=== PATIENT | female | born 1940 | race Caucasian/White ===

== ENCOUNTER 2017-01-14 14:48 | Inpatient (IN) | payer MEDICARE ==
[~2017-01-14] VITALS: Ht 160 cm; Wt 52.6 kg
--- NOTE | 2017-01-14 17:05 | NUR ---
PT WAS ADMITTED FROM [facility] FOR INCREASED AGGRESSION AND DELUSIONS ABOUT BOMBS AND FIRES. PT HAS NOT BEEN TAKING HER MEDICATIONS AND HAS BEEN NON-COMPLIANT WITH CARE. UPON ADMIT THE PT WOULD NOT OPEN HER EYES OR SPEAK WITH STAFF. RESPIRATORY WENT IN TO DO AN EKG BUT THE PT REFUSED. PT IS ORIENTED TO PERSON ONLY. ATTEMPTED TO CALL EMERGENCY CONTACT BUT NO ANSWER. PT DOES GIVE CONSENT FOR TREATMENT AT THIS TIME BUT SHE IS REFUSING ASSESSMENT. PT HAS AN ARM SLING ON HER LEFT ARM AND SHE DOES NOT BARE WEIGHT ON HER LEFT LEG. SHE TENDS TO DRAG HER LEFT LEG WHEN SHE WALKS. FAISAL FROM FACILITY STATED THAT THE PT HAD FALLEN BUT WAS TAKEN TO [facility] AND AN EXTRA WAS DONE AND CLEAR. FALL PRECAUTIONS INITIATED DUE TO PT BEING IMPULSIVE WITH A HX OF FALLS. WILL CONTINUE TO MONITOR.
[2017-01-14] MEDS ORDERED: ANASTROZOLE1 MG PO (17:16)
[2017-01-14] MEDS ORDERED: ASPIRIN325 MG PO (17:16)
[2017-01-14] MEDS ORDERED: LIPITOR80 MG PO (17:17)
[2017-01-14] MEDS ORDERED: COLACE100 MG PO (17:17)
[2017-01-14] MEDS ORDERED: KEPPRA250 MG PO (17:18)
[2017-01-14] MEDS ORDERED: NICODERM C1 PATCH .3 TRANSDERM (17:19)
[2017-01-14] MEDS ORDERED: MULTIPLE VITAMI1 TA1 PO (17:19)
[2017-01-14] MEDS ORDERED: PRADAXA150 MG PO (17:20)
[2017-01-14] MEDS ORDERED: HYDROCODON-ACE1 EAC7 PO (17:20)
[2017-01-14] MEDS ORDERED: PROPAFENONE HC225 MG PO (17:21)
[2017-01-14] MEDS ORDERED: REQUIP0.25 MG PO (17:22)
[2017-01-14] MEDS ORDERED: TRAZODONE HCL50 MG PO (17:22)
--- NOTE | 2017-01-14 17:41 | NUR ---
SPOKE WITH [facility] WHICH IS THE EMERGENCY CONTACT FOR THIS PATIENT. PERMISSION WAS GIVEN FOR TREATMENT. REVIEWED VISTITATION TIMES AND CODE WORD. VERBALIZED UNDERSTANDING.
[2017-01-14 18:03] VITALS: BP 122/60
--- NOTE | 2017-01-14 20:22 | NUR ---
RECEIVED IN BEDROOM. VERY CONFUSED. DELUSIONAL. STATES SHE NEEDS TO SAVE THE BABY. NOTED ANXIETY RELATED TO DELUSIONS. YELLING OUT CONSTANTLY. NO SIGNS OF AGGRESSION. PRN ATIVAN 0.5 MG IM AND HALDOL 2 MG IM GIVEN FOR SEVERE ANXIETY, CONTINUE TO REDIRECT AND ERORIENT. LAYING IN BED YELLING OUT FOR UNKNOWN PERSONS. CONTINUE PLAN OF CARE
[2017-01-14 23:31] VITALS: BP 131/74
[2017-01-15 09:05] LABS: BASOPHILS 0.4 % (0-2); EOSINOPHILS 1.8 % (0-7); HEMATOCRIT 29.9 % (36.0-48.0); HEMOGLOBIN 9.5 g/dL (12-16); IMMATURE GRANULOCYTES 0.1 % (0-5); LYMPHOCYTES 8.6 % (15-50); MCH 30.7 pg (26.0-34.0); MCHC 31.8 g/dL (31.0-37.0); MCV 96.8 fL (80.0-100.0); MONOCYTES 9.6 % (2-11); NEUTROPHILS 79.5 % (40-80); PLATELET COUNT 354 10x3/uL (130-400); RBC 3.09 10x6/uL (4.00-5.40); RDW 14.9 % (11.5-14.5); WBC 7.2 10x3/uL (4.8-10.8)
[2017-01-15 09:31] LABS: ALKALINE PHOSPHATASE 86 U/L (46-116); ALT (SGPT) 25 U/L (10-68); BILIRUBIN - TOTAL 0.49 mg/dL (0.2-1.3); CALC OSMOLALITY 278 mosm/kg (275-300); CALCIUM 8.9 mg/dL (8.5-10.1); CARBON DIOXIDE 29.5 mmol/L (21.0-32.0); CHLORIDE - SERUM 102 mmol/L (98-107); CHOL - HDL RATIO 2.3 ratio (2.3-4.1); CHOLESTEROL, TOTAL 86 mg/dL (0-200); CREATININE - SERUM 0.7 mg/dL (0.6-1.3); GLUCOSE 127 mg/dL (74-106); HDL CHOLESTEROL 38 mg/dL (32-96); LDL CHOLESTEROL 39 mg/dL (0-100); POTASSIUM - SERUM 3.4 mmol/L (3.5-5.1); PROTEIN - SERUM 6.6 g/dL (6.4-8.2); SODIUM 139 mmol/L (136-145); TRIGLYCERIDE 48 mg/dL (30-200); UREA NITROGEN 10 mg/dL (7-18); eGFR NON AFRICAN AMERICAN 87 mL/min (90-120)
[2017-01-15 09:49] LABS: HEMOGLOBIN A1C 4.5 % (4.8-6.0)
[2017-01-15 10:14] VITALS: BP 135/74
[2017-01-15 11:16] VITALS: BP 135/74
--- NOTE | 2017-01-15 12:37 | NUR ---
Patient is in dayroom, in wheelchair, will get in corner of the room and keeps bumping into wall. She is keeping her right eye closed but can open it on command. When asked about her eye she says she has had three strokes "starting at 10 years old". Patient is oriented to person only. She does know she's in the hospital, just unsure where. She says the reason she is here is because she has had strokes. Patient is non-aggressive, compliant with medication and non-delusional at this time. Continue to monitor, continue plan of care.
--- NOTE | 2017-01-15 14:31 | NUR ---
Patient in dayroom, yelling out "Elen". Patient was reoriented but still continues to yell out. Even though she is told that she is in the hospital and Elen is not here, she says "I don't care, I miss her". Continue to monitor, continue plan of care
[2017-01-15 18:57] LABS: APPEARANCE HAZY (CLEAR); BILIRUBIN NEGATIVE (NEGATIVE); COLOR DK YELLOW (YELLOW); GLUCOSE NEGATIVE (NEGATIVE); KETONE NEGATIVE (NEGATIVE); LEUKOCYTE ESTERASE NEGATIVE (NEGATIVE); NITRITE NEGATIVE (NEGATIVE); PROTEIN NEGATIVE (NEGATIVE); SPECIFIC GRAVITY 1.025 (1.005-1.020); UROBILINOGEN NORMAL (NORMAL)
[2017-01-15 19:29] VITALS: BP 120/59
--- NOTE | 2017-01-15 21:33 | NUR ---
RECEIVED IN BEDROOM. LAYING IN BED WITH EYES CLOSED. RESPONDS TO VOICE. CALM AND COOPERATIVE WITH CARE AND ASSESSMENTS. NO SIGNS OF AGGRESSION. NO DELUSIONAL STATEMENTS MADE. REDIRECT AND REORIENT NEEDED. RESTING EYES CLOSED AT THIS. CONTINUE PLAN OF CARE
[2017-01-16 06:16] LABS: RAPID PLASMA REAGIN Non Reactive (Non Reactive)
[2017-01-16 08:22] LABS: FOLATE (FOLIC ACID) - SERUM >20.0 ng/mL (>3.0)
[2017-01-16 08:30] VITALS: BP 94/59
--- NOTE | 2017-01-16 10:00 | NUR ---
B) Pt rec'd this a.m. in dining room for b'fast, alert, pleasant mood, no agitation or aggression noted. I) Meds admin per orders, group activity provided. R) Med compliant with no s/s adverse reaction noted, participated in a.m. group activity.P P) Cont current plan of care including meds and group activity.
[2017-01-16 10:21] LABS: VITAMIN D 25 HYDROXY 44.7 ng/mL (30.0-100.0)
--- NOTE | 2017-01-16 13:13 | NUR ---
Pt very agitated, angry, combative, stated, "I'm going home!" Attempting arise from w/c, very unsteady and unable to ambulate safely, pt attempting to hit staff, unable to re-direct. Ativan 0.5 mg admin PO for anxiety.
--- NOTE | 2017-01-16 14:00 | NUR ---
Pt sitting in w/c in day room, propelling self in w/c about day room, alert, quiet, no further anxiety noted at this time.
--- NOTE | 2017-01-16 17:47 | HP ---
PATIENT: JERI WANG MEDICAL RECORD: [id number] ACCOUNT: [id number] LOCATION:SHANNON Causey9 : 42 ADMISSION DATE: 01/14/17 HISTORY AND PHYSICAL EXAMINATION IDENTIFYING DATA: The patient is 76 years old and she is admitted to the hospital on a voluntary basis. CHIEF COMPLAINT: Psychosis. HISTORY OF PRESENT ILLNESS: The patient lives in a shelter in [place]. She apparently has an existing and known long-term diagnosis of schizophrenia. For some reason, she says she has been taking her antipsychotic medications, but she has developed a very bizarre psychotic syndrome. She believes that there are babies who have bombs strapped to them and she has got to get to them to intervene. It is complex, convoluted, and frankly does not really follow a logical pattern even though it is delusional. She is very distressed by it and it is hard to follow what she is wanting us to do. She has been yelling about this, demanding that she be allowed to save these children and we are preventing her from saving the babies. PAST MEDICAL HISTORY: Significant for hyperlipidemia. PAST PSYCHIATRIC HISTORY: Significant for schizophrenia. The details of her past hospitalizations are actually unknown. She is trying to tell me a little bit about it, but then is too upset about the children that have the bombs. FAMILY HISTORY: Unknown. ALLERGIES: PENICILLIN, IODINE AND SULFA. CURRENT MEDICATIONS: Include Arimidex, aspirin, Lipitor, Colace, Keppra, Pradaxa, Requip and Restoril. SOCIAL HISTORY: The patient is single. She has never been and has no children. She says she is from [facility], that she came here to visit someone and now lives in a shelter. She denies drug or alcohol abuse. MENTAL STATUS EXAMINATION: The patient is awake, alert and oriented to person and place. Her mood is flat. Her affect is constricted. Thought processes are circumstantial. Memory, concentration and abstraction abilities are moderately impaired and she denies that she would seek to harm herself or others, as well as psychotic symptoms. Obviously, she is having psychotic symptoms, but she denies them, and she also says that she would do whatever is necessary including hurt an adult to save the babies. ASSETS: Supportive and stable living environment. LIABILITIES: Limited insight. DIAGNOSTIC IMPRESSION: AXIS I: Schizophrenia, chronic, undifferentiated. AXIS II: None. AXIS III: Hyperlipidemia, cardiac arrhythmias, seizure disorder, breast cancer. AXIS IV: Moderate stressors. HISTORY AND PHYSICAL [id number] JERI WANG AXIS V: Global assessment of functioning is 35. PLAN: At this time, the patient is admitted to the hospital secondary to psychotic symptoms associated with chronic mental illness. She will be treated with both mood-stabilizing and antipsychotic medications. Her long-term prognosis is guarded. TRANSINT:[id number] Voice Confirmation ID: [id number] DOCUMENT ID: [id number] YUNIER SEXTON MD at 1747 CC: [id number] DICTATION DATE: 01/15/17 1501 UNDERGROUND MINE SUPERINTENDENT: 01/15/175 ADM IN [place] [id number] [place] [address]
[2017-01-16 20:16] VITALS: BP 135/68
--- NOTE | 2017-01-17 00:54 | NUR ---
B) Recieved sitting i her wheelchair in the day room, alert and oriented to self only, restless at times, social with peers, I) Administered perscribed medications, redirected as needed, monitored for falls and safety, R) Medication compliant, tearful at times, P) Continue plan of care, continue to monitor.
[2017-01-17 11:00] VITALS: BP 136/55
--- NOTE | 2017-01-17 13:04 | PN ---
PATIENT:JERI WANG MEDICAL RECORD: [id number] LOCATION:NAIDAJaya MarciConnerDeanne ADMISSION DATE: 01/14/17 PROGRESS NOTE DATE OF SERVICE: 01/16/2017 SUBJECTIVE: The patient's case was discussed with staff. She has no new complaint. OBJECTIVE: The patient denies intent to harm herself or others. She generally tolerates her medicines well. Eye contact is fair. ASSESSMENT: No change in diagnoses. PLAN: Current medicines and therapies have been reviewed and will be maintained. Long-term prognosis is guarded. I am going to increase the dose of the Zyprexa slightly. TRANSINT:[id number] Voice Confirmation ID: [id number] DOCUMENT ID: [id number] YUNIER SEXTON MD at 1304 CC: [id number] DICTATION DATE: 01/16/17 184 MILLER FIRST: 01/17/17 0302 ADM IN [facility] [address] [place] [address]
--- NOTE | 2017-01-17 15:25 | NUR ---
LATE ENTRY: PATIENT IS AWAKE AND ALERT, SHE IS CONVERSING WITH STAFF, BUT SHE IS CONFUSED AND OFTEN NONSENSICAL AND UNABLE TO FOLLOW A COMPLETE CONVERSATION. PATIENT IS CALM, SHE IS IN A W/C AND CAN SELF PROPEL WITH ONE ARM, BUT NEEDS ASSIST WITH TRANSFERS AND PROPELLING ANY DISTANCE. CONTINUE PLAN OF CARE.
--- NOTE | 2017-01-17 20:30 | NUR ---
RECEIVED IN DAYROOM SITTING IN W/C. CALM AND COOPERATIVE WITH CARE AND ASSESSMENT. REDIRECT AND REORIENT NEEDED. COMPLIANT WITH MEDICATIONS. CONTINUE PLAN OF CARE.
[2017-01-17 21:12] VITALS: BP 133/65
[2017-01-18 09:35] VITALS: BP 102/42
--- NOTE | 2017-01-18 12:38 | PN ---
PATIENT:JERI WANG MEDICAL RECORD: [id number] LOCATION:SHANNON Cunningham112 ADMISSION DATE: 01/14/17 PROGRESS NOTE DATE OF SERVICE: 01/17/2017 Psychiatric Progress Note SUBJECTIVE: The patient's case was discussed with staff. She has no new complaint. OBJECTIVE: The patient is in good behavioral control with limited insight about her condition. She tolerates her medicines well. She does appear a little bit sedated. I am strongly suspecting that this is related to noncompliance with her medications prior to admission. She will be monitored for clinical changes and for today, I am going to just leave her on the current medications. TRANSINT:[id number] Voice Confirmation ID: [id number] DOCUMENT ID: [id number] YUNIER SEXTON MD at 1238 CC: [id number] DICTATION DATE: 01/17/17 1320 BOBBIN PAINTER: 01/18/17 0129 ADM IN [facility] [address] [place] [id number]
--- NOTE | 2017-01-18 15:26 | NUR ---
B) PATIENT IS CONFUSED, SHE CAN MAKE A CONVERSATION, BUT IT IS NONSENSICAL AFTER A FEW MINUTES, SHE DOES PARTICIPATE IN GROUPS SHE HAS NOT SHOWN ANY AGGRESSION. SHE HAS LISTENED TO REDIRECTION WHEN NEEDED. JOSE ALFREDO SIN DID COME BY AT [facility] TO ASSESS HER FOR POSSIBLE ADMISSION. PATIENT USES A W/C TO GET AROUND, SHE HAS A SLING ON HER LEFT ARM. BILATERAL LOWER LEGS HAVE SKIN TEARS WITH BANDAIDS. I) PROVIDE PRESCRIBED MEDS. R) PATIENT IS CALM AND COMPLIANT WITH MEDS. P) CONTINUE PLAN OF CARE.
[2017-01-18 19:30] VITALS: BP 128/79
--- NOTE | 2017-01-18 20:00 | NUR ---
RECEIVED IN DINING ROOM SITTING IN W/C, ISOLATED FROM HER PEERS. CONFUSED, AND CALM. COOPERATIVE WITH ASSESSMENT AND CARE. VSS. REDIRECT AND REORIENT NEEDED. REINFORCE FALL SAFETY. CONTINUE WITH PLAN OF CARE.
[2017-01-19 09:02] VITALS: BP 114/67
--- NOTE | 2017-01-19 15:10 | NUR ---
B) PATIENT IS CALM AND POLITE, SHE IS ORIENTED TO SELF. PATIENT IS COOPERATIVE. SHE HAS HAD HER LEGS ELEVATED SHE HAS EDEMA IN HER LEGS. SHE HAS GONE TO TAKE A SHOWER. I) PROVIDE PRESCRIBED MEDS. R) PATIENT IS COMPLIANT WITH MEDS. P) CONTINUE PLAN OF CARE.
[2017-01-19 19:30] VITALS: BP 121/86
--- NOTE | 2017-01-20 03:07 | NUR ---
B) Recieved patient in the day room alert and oriented to self, calm and cooperative this shift, I) Administered perscribed medications, monitored for falls and safety, redirected as needed, R) Medication compliant, restless at times, P) Continue plan of care.
[2017-01-20 08:57] VITALS: BP 134/57
--- NOTE | 2017-01-20 18:03 | NUR ---
Patient in dayroom, oriented to self, place, time. She says she is here because she had a stroke. She is fidgety and restless. Patient does socialize with peers but started talking to herself later in the day. Patient reoriented. Continue to monitor, continue plan of care.
[2017-01-20 19:30] VITALS: BP 123/68
--- NOTE | 2017-01-20 22:25 | NUR ---
B) Recieved patient ambulating in the day room in her wheelchair, alert and oriented to self, calm and cooperative with care and assessments, I) Administered perscribed medications crushed in ice cream, R) medication compliant, resting in bed now, P) Continue plan of care.
[2017-01-21 07:00] VITALS: BP 90/59
--- NOTE | 2017-01-21 09:54 | PN ---
PATIENT:JERI WANG MEDICAL RECORD: [id number] LOCATION:SHANNON Causey ADMISSION DATE: 01/14/17 PROGRESS NOTE DATE OF SERVICE: 01/18/2017 SUBJECTIVE: The patient's case was discussed with staff. She has no new complaint. OBJECTIVE: The patient is still delusional, but not aggressive. She is not eating very well, but she says she is not very hungry and that she will try harder. ASSESSMENT: No change in diagnoses. PLAN: Current medicines have been reviewed and will be maintained. Long-term prognosis is guarded. TRANSINT:[id number] Voice Confirmation ID: [id number] DOCUMENT ID: [id number] YUNIER SEXTON MD at 0954 CC: [id number] DICTATION DATE: 01/18/17 1255 BILINGUAL KINDERGARTEN TEACHER: 01/19/17 0055 ADM IN [facility] [address] [place] [address]
--- NOTE | 2017-01-21 14:43 | NUR ---
Patient in dayroom oriented to self and place, she knows she in a hospital. Patient reoriented. Lips were chapped and mouth extremely dry. Glycerin swabs used along with lip moisturizer. Bandage put on skin tears on left leg. Patient is restless. She admitted to being in pain. Patient given prn [place]. Continue to monitor.
[2017-01-21 19:42] VITALS: BP 115/46
--- NOTE | 2017-01-21 19:57 | NUR ---
RECEIVED IN HALLWAY. SITTING IN WHEELCHAIR OUTSIDE OF NURSES STATION. CALM AND COOPERATIVE WITH CARE AND ASSESSMENTS. NO SIGNS OF AGGRESSION. NO DELUSIONAL STATEMENTS MADE AT THIS TIME. CONTINUES TO REST IN WHEELCHAIR. CONTINUE PLAN OF CARE
[2017-01-22 07:00] VITALS: BP 109/42
--- NOTE | 2017-01-22 14:21 | PN ---
PATIENT:JERI WANG MEDICAL RECORD: [id number] LOCATION:SHANNON CunninghamDeanne ADMISSION DATE: 01/14/17 PROGRESS NOTE DATE OF SERVICE: 01/21/2017 SUBJECTIVE: The patient's case was discussed with staff. She has no new complaint. OBJECTIVE: The patient is in good behavioral control with limited insight about her condition. She does tolerate her medicines reasonably well. ASSESSMENT: No change in diagnoses. PLAN: Current medicines have been reviewed and will be maintained. Long-term prognosis is guarded. TRANSINT:[id number] Voice Confirmation ID: [id number] DOCUMENT ID: [id number] YUNIER SEXTON MD at 1421 CC: [id number] DICTATION DATE: 01/21/17 1013 RAYMOND MILL OPERATOR: 01/21/17 1125 ADM IN [place] [id number] [place] [address]
[2017-01-22 14:28] VITALS: Ht 160 cm; Wt 52.6 kg
--- NOTE | 2017-01-22 17:08 | NUR ---
Patient is oriented to self and place. She has severe left sided weakness, and difficulty drinking with a straw or cup. Patient has assisted with self hygiene. She is not hallucinating or aggressive. Calm and cooperative. [place] alarm on and monitored for safety. Continue to monitor
--- NOTE | 2017-01-22 19:22 | NUR ---
RECEIVED IN DAYROOM. SITTING IN CHAIR WITH PEERS AT HER SIDE. CALM AND COOPERATIVE WITH CARE AND ASSESSMENTS. ENCOURAGE TO ASK FOR ASSIST WHEN NEEDED. REDIRECT AND REORIENT NEEDED. CONTINUES TO REST QUIETLY IN CHAIR. CONTINUE PLAN OF CARE
[2017-01-22 19:42] VITALS: BP 116/55
[2017-01-23 08:00] VITALS: BP 141/51
--- NOTE | 2017-01-23 11:15 | NUR ---
ALERT AND OREINTED TO NAME AND PLACE, CALM AND COOPERATIVE WITH CARE. NO DELUSIONS. REDIRECT AND REORIENT NEED. COMPLIANT WITH MEDICATIONS. GOOD BEHAVIOR CONTROL WITH NO AGGRESSION. SAFETY MAINTAINED. CONTINUE PLAN OF CARE.
--- NOTE | 2017-01-23 13:01 | PN ---
PATIENT:JERI WANG MEDICAL RECORD: [id number] LOCATION:SHANNON CunninghamDeanne ADMISSION DATE: 01/14/17 PROGRESS NOTE DATE OF SERVICE: 01/22/2017 SUBJECTIVE: The patient's case was discussed with staff. She has no new complaint. OBJECTIVE: The patient continues to be delusional, but is less agitated than she has previously been. She generally tolerates her medicines well. ASSESSMENT: No change in diagnoses. PLAN: Current medicines have been reviewed and will be maintained. Her long-term prognosis is guarded. TRANSINT:[id number] Voice Confirmation ID: [id number] DOCUMENT ID: [id number] YUNIER SEXTON MD at 1301 CC: [id number] DICTATION DATE: 01/22/17 1444 HOME HEALTH AID: 01/22/[address] [facility] [address] [place] [address]
[2017-01-23 19:50] VITALS: BP 112/51
--- NOTE | 2017-01-24 01:02 | NUR ---
B) Recieved patient in the dayroom in a wheelchair, alert and oriented to self and being in a hospital, calm and cooperative, I) Administered perscribed medications monitored for safety and falls, R) Medication compliant, restless sleep, throwing legs out of bed, P) Continue plan of care.
[2017-01-24 08:00] VITALS: BP 96/40
--- NOTE | 2017-01-24 15:59 | PN ---
PATIENT:JERI WANG MEDICAL RECORD: [id number] LOCATION:SHANNON CunninghamDeanne ADMISSION DATE: 01/14/17 PROGRESS NOTE DATE OF SERVICE: 01/23/2017 SUBJECTIVE: The patient's case was discussed with staff. She has no new complaint. OBJECTIVE: The patient is in good behavioral control with limited insight about her condition. She does tolerate her medications well. ASSESSMENT: No change in diagnoses. PLAN: Brief supportive and educational interventions were made. The patient's long-term prognosis is guarded. I am going to discontinue her trazodone since she is sleeping 9 hours at night. TRANSINT:[id number] Voice Confirmation ID: [id number] DOCUMENT ID: [id number] YUNIER SEXTON MD at 1559 CC: [id number] DICTATION DATE: 01/23/17 1312 FACSIMILE OPERATOR: 01/23/172001 ADM IN [facility] [address] [place] [address]
[2017-01-24 19:05] VITALS: BP 120/47
--- NOTE | 2017-01-24 23:25 | NUR ---
B) Recieved patient in the day room, alert and oriented to self only, calm and cooperative with care and assessment, (I) Administered perscribed medications with applesauce, monitored for safety, redirected as needed, R) Medication compliant, resting now quietly in bed, P) Continue Plan of Care.
[2017-01-25 08:00] VITALS: BP 107/47
--- NOTE | 2017-01-25 09:35 | NUR ---
B) PATIENT IS AWAKE AND ALERT, BUT SHE HAS CONFUSION. SHE DOES HAVE EDEMA TO HER LEFT LOWER EXTREMITY. ELEVATED HER LEG AND FOOT ON A PILLOW AND LET HER SIT IN THE RECLINER. DR. VILLAGOMEZ ORDERED AN U/S. I) PROVIDE PRESCRIBED MEDS. R) PATIENT IS COMPLIANT WITH MEDS SHE REMAINS CONFUSED QUESTIONED WHY SHE HAD TO HAVE AN U/S WHEN OTHER PEOPLE SHOULD HAVE HAD IT, WHY WAS I CHOSEN? P) CONTINUE PLAN OF CARE.
--- NOTE | 2017-01-25 11:07 | NUR ---
Nutrition Follow Up: Chart reviewed. Pt is eating 44% meal avg on a reduced sodium diet. Wt stable. +BM 01/18/17 - no BM x 7 days. Labs reviewed. Meds noted. Rec liberalizing diet to Regular to encourage po intake. RD will continue to monitor pt progress.
[2017-01-25 19:30] VITALS: BP 117/44
--- NOTE | 2017-01-25 22:21 | PN ---
PATIENT:JERI WANG MEDICAL RECORD: [id number] LOCATION:SHANNON Causey ADMISSION DATE: 01/14/17 PROGRESS NOTE DATE OF SERVICE: 01/25/2017 SUBJECTIVE: The patient states that her back hurts. OBJECTIVE: Staff states the patient has been relatively stable over the last several days. We are waiting on results from [place] assessment. At the present time, the patient has been reasonably cooperative in terms of taking medications. On exam, mood is irritable, affect is shallow. Speech is terse. Content of thought focuses on somatic complaints. Sensorium shows no change. ASSESSMENT: No change in diagnosis. PLAN: 1. Maintain current medications. 2. Continue supportive therapy. TRANSINT:[id number] Voice Confirmation ID: [id number] DOCUMENT ID: [id number] MADINA PINEDA III, MD at 2221 CC: [id number] DICTATION DATE: 01/25/17 1153 BANQUET STEWARDESS: 01/25/172052 ADM IN [place] [id number] [place] [id number]
[2017-01-26 09:59] VITALS: BP 142/51
--- NOTE | 2017-01-26 13:00 | NUR ---
ALERT AND ORIENTED TO NAME AND PLACE, NO INSIGHT TO REASON FOR HOSPITALIZATION. NO HALLUCIANTIONS, CARRIES ON APPROPRIATE CONVERSATION AT TIMES, DEMANDING AND YELLS OUT OFTEN FOR NURSE. NO HALLUCINATING OBSERVED TODAY. SAFETY MAINTAINED. CONTINUE PLAN OF CARE.
--- NOTE | 2017-01-26 14:00 | NUR ---
ALERT AND ORIENTED TO NAME AND PLACE. CALM AND COOPERATIVE WITH CARE. NO AGGRESSION OR DELUSIONS NOTED. COMPLIANT WITH MEDICATIONS. SAFETY MAINTAINED. COONTINUE WITH PLAN OF CARE.
[2017-01-26 19:30] VITALS: BP 107/47
--- NOTE | 2017-01-26 23:00 | NUR ---
CALM AND COOPERATIVE WITH CARE AND ASSESSMENT. SEE ASSESSMENT FLOW SHEET FOR DETAILS. CONTINUE PLAN OF CARE.
--- NOTE | 2017-01-27 06:48 | PN ---
PATIENT:JERI WANG MEDICAL RECORD: [id number] LOCATION:SHANNON Causey ADMISSION DATE: 01/14/17 PROGRESS NOTE DATE OF SERVICE: 01/26/2017 SUBJECTIVE: No new complaint. OBJECTIVE: The patient overall has been doing reasonably well and her sleep has improved. She has occasional incontinence. On exam, mood is slightly anxious. Affect is very peculiar and also inappropriate. Speech is slow in rate and volume. Content of thought focuses primarily on somatic concerns. Sensorium is unchanged. ASSESSMENT: No change in diagnosis. PLAN: 1. Maintain current medication. 2. Continue supportive therapy. TRANSINT:[id number] Voice Confirmation ID: [id number] DOCUMENT ID: [id number] MADINA PINEDA III, MD at 0648 CC: [id number] DICTATION DATE: 01/26/17 1506 CONCRETE FINISHER APPRENTICE: 01/26/17 2132 ADM IN [facility] [address] [place] [id number]
[2017-01-27 07:00] VITALS: BP 106/51
--- NOTE | 2017-01-27 18:21 | NUR ---
Patient calm and compliant with medication. She has been pleasant and cooperative. Patient still has left sided weakness. Patient denies pain. She is oriented to person and place. Patient reoriented, continue to monitor.
[2017-01-27 19:30] VITALS: BP 125/49
--- NOTE | 2017-01-27 21:32 | NUR ---
RECEIVED IN DAYROOM. SITTING IN A WHEELCHAIR. SOCIAL WITH STAFF AT TIMES. CALM AND COOPERATIVE WITH CARE AND ASSESSMENTS. NO SIGNS OF AGGRESSION. REDIRECT AND REORIENT NEEDED. REMAINS IN WHEELCHAIR CALM AND COOPERATIVE. CONTINUE PLAN OF CARE
[2017-01-28 07:00] VITALS: BP 134/61
--- NOTE | 2017-01-28 13:05 | PN ---
PATIENT:JERI WANG MEDICAL RECORD: [id number] LOCATION:SHANNON CunninghamDeanne ADMISSION DATE: 01/14/17 PROGRESS NOTE DATE OF SERVICE: 01/24/2017 SUBJECTIVE: The patient's case was discussed with staff. She has no new complaint. OBJECTIVE: The patient is in good behavioral control with limited insight about her condition. She tolerates her medicines well. ASSESSMENT: No change in diagnoses. PLAN: Brief supportive and educational interventions were made. The patient will be maintained on current medicines and I anticipate she can be transitioned out of the hospital soon. TRANSINT:[id number] Voice Confirmation ID: [id number] DOCUMENT ID: [id number] YUNIER SEXTON MD at 1305 CC: [id number] DICTATION DATE: 01/24/17 1624 CASINO INVESTIGATOR: 01/24/17 2231 ADM IN [place] [id number] [place] [address]
--- NOTE | 2017-01-28 14:54 | NUR ---
Patient oriented to self, place, time and situation. She has complaints of 3/10 on the pain scale. She has been repositioned, and given prescribed pain medication. Patient is non-aggressive and non-delusional at this time. Continue to monitor, continue plan of care.
--- NOTE | 2017-01-28 19:57 | NUR ---
RECEIVED IN HALLWAY. SITTING OUTSIDE OF NURSES STATION WITH PEERS AT HER SIDE. CALM AND COOPERATIVE WITH CARE AND ASSESSMENT. NO SIGNS OF AGGRESSION. REDIRECT AND REORIENT NEEDED. ENCOURAGE TO EXPRESS NEEDS. CONTINUES TO SIT IN HALLWAY. CONTINUE PLAN OF CARE
[2017-01-28 20:02] VITALS: BP 122/53
[2017-01-29 07:00] VITALS: BP 100/44
--- NOTE | 2017-01-29 13:59 | NUR ---
ORIENTED TO PERSON AND PLACE. PT IS ANXIOUS ABOUT WHAT WILL HAPPEN WHEN SHE DISCHARGES BECAUSE SHE STATED, "I HAVE NO PLACE TO GO". REASSURED HER THAT WE WOULD HELP HER WITH DISCHARGE PLANNING AND WOULD FIND HER A SAFE PLACE. NO AGGRESSION NOTED. PT CONTINUES TO BE RESTLESS BUT EASIER TO REDIRECT. NO DELUSIONS NOTED. MEDICATIONS GIVEN ORDERED. PT IS COMPLIANT WITH MEDICATIONS. CRISTIAN SIN CAME TODAY TO ASSESS HER AND AWAITING RESULTS. FALL PRECAUTIONS MAINTAINED. WILL CONTINUE TO MONITOR AND CONTINUE WITH PLAN OF CARE.
--- NOTE | 2017-01-29 14:09 | PN ---
PATIENT:JERI WANG MEDICAL RECORD: [id number] LOCATION:SHANNON Causey ADMISSION DATE: 01/14/17 PROGRESS NOTE DATE OF SERVICE: 01/28/2017 SUBJECTIVE: The patient's case was discussed with staff. She has no new complaint. OBJECTIVE: The patient is in good behavioral control, poor insight about her condition. She still remains delusional, but is much calmer. ASSESSMENT: Schizophrenia. PLAN: The patient will be given Namenda secondary to her cognitive impairment. She will be monitored for clinical changes associated with its use. TRANSINT:[id number] Voice Confirmation ID: [id number] DOCUMENT ID: [id number] YUNIER SEXTON MD at 1409 CC: [id number] DICTATION DATE: 01/28/17 1348 MIMEOGRAPH OPERATOR: 01/28/17 2132 ADM IN [place] [id number] [place] [address]
[2017-01-30 09:06] VITALS: BP 100/46
--- NOTE | 2017-01-30 11:33 | NUR ---
ORIENTED TO PERSON ONLY. AGITATED AT TIMES BUT EASILY REDIRECTED. REFUSED SOME MEDICATIONS BUT SHE TOOK MAJORITY. PT STATED, "I HAVE HAD ENOUGH". ATTEMPTED TO EDUCATE ON IMPORTANCE OF ALL MEDICATIONS BUT PT CONTINUED TO REFUSE. NO PHYSICAL AGGRESSION NOTED. DENIES SI. PT COOPERATING WITH PT AND MOVEMENT OF LEGS ARE GETTING BETTER. PT IS ABLE TO TRANSFER EASIER. NO DELUSIONS NOTED. FALL PRECUATIONS MAINTAINED. WILL CONTINUE TO MONITOR AND CONTINUE WITH PLAN OF CARE.
--- NOTE | 2017-01-30 12:41 | PN ---
PATIENT:JERI WANG MEDICAL RECORD: [id number] LOCATION:[facility] ADMISSION DATE: 01/14/17 PROGRESS NOTE DATE OF SERVICE: 01/29/2017 SUBJECTIVE: The patient's case was discussed with staff. She has no new complaint. OBJECTIVE: The patient is in good behavioral control with limited insight about her condition. She tolerates her medicines well. ASSESSMENT: No change in diagnoses. PLAN: Current medicines and therapies have been reviewed, both will be maintained. TRANSINT:[id number] Voice Confirmation ID: [id number] DOCUMENT ID: [id number] YUNIER SEXTON MD at 1241 CC: [id number] DICTATION DATE: 01/29/17 1422 ABSTRACTOR: 01/29/17 2338 ADM IN [place] [id number]
[2017-01-30 19:30] VITALS: BP 138/52
--- NOTE | 2017-01-31 01:39 | NUR ---
B) Recieved patient in the day room, alert and oriented to self, calm and cooperative with care and assessment, confused, I) Administered perscribed medications crushed in applesauce, monitored for safety and falls, R) Medication compliant, resting quietly in bed, P) Continue plan of care.
[2017-01-31 08:00] VITALS: BP 106/47
--- NOTE | 2017-01-31 09:29 | NUR ---
B) PATIENT IS AWAKE AND ALERT, SHE IS POLITE, SHE HAS INTERMITTANT CONFUSION, SHE IS A MOD ASSIST FOR TRANSFERS AND CAN AMBULATE WITH A WALKER WITH STAFF HELP. I) PROVIDE PRESCRIBED MEDS. R) PATIENT IS COMPLIANT WITH MEDS, SHE IS REACTIVE IN AFFECT. NO DEPRESSION NOTED TODAY. P) CONTINUE PLAN OF CARE.
--- NOTE | 2017-01-31 14:12 | PN ---
PATIENT:JERI WANG MEDICAL RECORD: [id number] LOCATION:[facility] ADMISSION DATE: 01/14/17 PROGRESS NOTE DATE OF SERVICE: 01/30/2017 SUBJECTIVE: The patient's case was discussed with staff. She has no new complaint. OBJECTIVE: The patient is in good behavioral control with limited insight about her condition. She generally tolerates her medicines well. ASSESSMENT: Schizophrenia. PLAN: The patient will be maintained on current medicines. She did refuse her night medicines, but now tells me that she did not even though the staff say she did. I would anticipate she could reasonably be transitioned out of the hospital soon if this level of improvement is maintained. TRANSINT:[id number] Voice Confirmation ID: [id number] DOCUMENT ID: [id number] YUNIER SEXTON MD at 1412 CC: [id number] DICTATION DATE: 01/30/17 1250 CARE TRANSITION COORDINATOR: 01/30/[address] [facility] [address] [place] [address]
[2017-01-31] MEDS ORDERED: RYTHMOL PO (14:23)
[2017-01-31] MEDS ORDERED: VOLTAREN100 GM TOPICAL (14:24)
[2017-01-31] MEDS ORDERED: ASPIRIN81 MG PO (14:24)
[2017-01-31] MEDS ORDERED: NAMENDA5 MG PO (14:25)
[2017-01-31] MEDS ORDERED: ZYPREXA10 MG PO (14:25)
[2017-01-31] MEDS ORDERED: MOBIC7.5 MG PO (14:25)
[2017-01-31] MEDS ORDERED: Keppra solution PO (14:26)
[2017-01-31] MEDS ORDERED: LIDODERM 5 %1 PATCH TRANSDERM (14:27)
[2017-01-31] MEDS ORDERED: PEPCID20 MG PO (14:27)
[2017-01-31] MEDS ORDERED: FLORAJEN3 CAPS460 MG PO (14:27)
[2017-01-31 19:54] VITALS: BP 111/52
--- NOTE | 2017-01-31 22:00 | NUR ---
RECEIVED IN DAYROOM SITTING IN W/C. ALERT, BUT CONFUSED. CALM AND COOPERATIVE WITH CARE AND ASSESSMENT. MEDICATION COMPLIANT. FALL PRECAUTIONS MAINTAINED. CONTINUE PLAN OF CARE.
[2017-02-01 09:47] VITALS: BP 127/54
--- NOTE | 2017-02-01 10:49 | NUR ---
FAXED ALL D/C PAPERWORK TO [employer], HARD COPIES MADE FOR MD PEDIATRIC ALLERGIST, PATIENT IS PACKED AND READY TO GO. MD PEDIATRIC ALLERGIST HERE TO PICK PATIENT UP. STAFF ASSISTED TO VEHICLE.
--- NOTE | 2017-02-01 10:58 | NUR ---
CALLED REPORT TO BASHIR VELASCO.
--- NOTE | 2017-02-01 10:58 | NUR ---
PATIENT D/C'D OFF THE UNIT NOW, GOING TO [facility].
--- NOTE | 2017-02-01 13:37 | PN ---
PATIENT:JERI WANG MEDICAL RECORD: [id number] LOCATION:[facility]ci[facility]ner[facility]anne ADMISSION DATE: 01/14/17 PROGRESS NOTE DATE OF SERVICE: 01/31/2017 SUBJECTIVE: The patient's case was discussed with staff. She has no new complaint. OBJECTIVE: The patient denies intent to harm herself or others. She generally tolerates her medicines well. Eye contact is fair. Concentration is fair. ASSESSMENT: No change in diagnoses. PLAN: The patient will be transitioned out of the hospital tomorrow morning. This presumes that if she maintains this level of improvement, she will be discharged. Also, she will have follow up with the primary care intermediate physician at [facility]. TRANSINT:[id number] Voice Confirmation ID: [id number] DOCUMENT ID: [id number] YUNIER SEXTON MD at 1337 CC: [id number] DICTATION DATE: 01/31/17 1446 DIRECTOR FUNDS DEVELOPMENT: 02/01/17 0011 DIS IN 02/01/17 [place] [id number] [place] [address]
--- NOTE | 2017-02-02 06:56 | PN ---
PATIENT:JERI WANG MEDICAL RECORD: [id number] LOCATION:[facility] Cunningham112 ADMISSION DATE: 01/14/17 PROGRESS NOTE DATE OF SERVICE: 02/01/2017 SUBJECTIVE: The patient's case was discussed with staff. She has no new complaint. OBJECTIVE: The patient is disorganized, but in good behavioral control. She will be transitioned out of the hospital today. ASSESSMENT: Schizophrenia. PLAN: [facility]. Followup will be with her outpatient psychiatrist and the jail primary care physician. TRANSINT:[id number] Voice Confirmation ID: [id number] DOCUMENT ID: [id number] YUNIER SEXTON MD at 0656 CC: [id number] DICTATION DATE: 02/01/17 1427 HOUSE PRINCIPAL: 02/01/17 2342 DIS IN 02/01/17 [place] [id number] [place] [address]
== END 2017-02-01 11:46 | DRG 885 ==
LOC: D.PSYCH 14:48
PROVIDERS: ADMIT Psychiatry & Neurology Psychiatry
DX: F20.5 Residual schizophrenia (principal); N39.0 Urinary tract infection, site not specified; I69.959 Hemiplegia and hemiparesis following unspecified cerebrovascular disease affecting unspecified side; F01.50 Vascular dementia, unspecified severity, without behavioral disturbance, psychotic disturbance, mood disturbance, and anxiety; B96.20 Unspecified Escherichia coli [E. coli] as the cause of diseases classified elsewhere; E78.5 Hyperlipidemia, unspecified; G40.909 Epilepsy, unspecified, not intractable, without status epilepticus; Z85.3 Personal history of malignant neoplasm of breast; Z87.891 Personal history of nicotine dependence; R26.89 Other abnormalities of gait and mobility

== ENCOUNTER 2017-02-07 10:29 | Inpatient (IN) | payer MEDICARE ==
[~2017-02-07] VITALS: Ht 160 cm; Wt 64.9 kg
[2017-02-07] VITALS (8 sets, daily range): BP systolic 113–147; BP diastolic 42–85; BMI 25.3
[~2017-02-07 10:29] MED LIST: ANASTROZOLE1 MG PO; ASPIRIN325 MG PO; ASPIRIN81 MG PO; COLACE100 MG PO; FLORAJEN3 CAPS460 MG PO; HYDROCODON-ACE1 EAC7 PO; KEPPRA250 MG PO; Keppra solution PO; LIDODERM 5 %1 PATCH TRANSDERM; LIPITOR80 MG PO; MOBIC7.5 MG PO; MULTIPLE VITAMI1 TA1 PO; NAMENDA5 MG PO; NICODERM C1 PATCH .3 TRANSDERM; PEPCID20 MG PO; PRADAXA150 MG PO; PROPAFENONE HC225 MG PO; REQUIP0.25 MG PO; RYTHMOL PO; TRAZODONE HCL50 MG PO; VOLTAREN100 GM TOPICAL; ZYPREXA10 MG PO
[2017-02-07 11:31] LABS: BASOPHILS 0.1 % (0-2); EOSINOPHILS 3.5 % (0-7); HEMATOCRIT 26.7 % (36.0-48.0); HEMOGLOBIN 8.3 g/dL (12-16); IMMATURE GRANULOCYTES 0.1 % (0-5); MCH 29.2 pg (26.0-34.0); MCHC 31.1 g/dL (31.0-37.0); NEUTROPHILS 74.3 % (40-80); PLATELET COUNT 330 10x3/uL (130-400); RBC 2.84 10x6/uL (4.00-5.40); RDW 14.7 % (11.5-14.5)
[2017-02-07 11:52] LABS: APTT 69.3 SECONDS (22.8-39.4); INR 2.02 (0.85-1.17); PROTIME 22.9 SECONDS (11.6-15.0)
[2017-02-07 11:55] LABS: ALBUMIN 2.6 g/dL (3.4-5.0); ALKALINE PHOSPHATASE 91 U/L (46-116); ALT (SGPT) 28 U/L (10-68); CALC OSMOLALITY 281 mosm/kg (275-300); CALCIUM 8.6 mg/dL (8.5-10.1); CARBON DIOXIDE 26.7 mmol/L (21.0-32.0); CHLORIDE - SERUM 105 mmol/L (98-107); CREATININE - SERUM 1.1 mg/dL (0.6-1.3); GLUCOSE 90 mg/dL (74-106); POTASSIUM - SERUM 4.2 mmol/L (3.5-5.1); PROTEIN - SERUM 6.4 g/dL (6.4-8.2); SODIUM 139 mmol/L (136-145); UREA NITROGEN 24 mg/dL (7-18); eGFR NON AFRICAN AMERICAN 51 mL/min (90-120)
[2017-02-07 11:58] LABS: CREATINE KINASE 45 UL (21-215); TROPONIN-I < 0.017 ng/mL (0.000-0.060)
[2017-02-07 12:05] LABS: UDS - AMPHET NEGATIVE QUAL (NEGATIVE); UDS - BARB NEGATIVE QUAL (NEGATIVE); UDS - BENZO NEGATIVE QUAL (NEGATIVE); UDS - COCAINE NEGATIVE QUAL (NEGATIVE); UDS - METH NEGATIVE QUAL (NEGATIVE); UDS - OPIATE NEGATIVE QUAL (NEGATIVE); UDS - PCP NEGATIVE QUAL (NEGATIVE); UDS - THC NEGATIVE QUAL (NEGATIVE)
[2017-02-07 12:06] LABS: APPEARANCE CLEAR (CLEAR); BILIRUBIN NEGATIVE (NEGATIVE); COLOR YELLOW (YELLOW); GLUCOSE NEGATIVE (NEGATIVE); KETONE NEGATIVE (NEGATIVE); LEUKOCYTE ESTERASE NEGATIVE (NEGATIVE); NITRITE NEGATIVE (NEGATIVE); PROTEIN NEGATIVE (NEGATIVE); UROBILINOGEN NORMAL (NORMAL)
[2017-02-08] VITALS: BP 136/66
[2017-02-08 04:00] VITALS: BP 151/81
[2017-02-08 07:52] VITALS: BP 139/67
[2017-02-08 10:43] LABS: BASOPHILS 0.2 % (0-2); EOSINOPHILS 3.6 % (0-7); HEMATOCRIT 35.8 % (36.0-48.0); HEMOGLOBIN 11.4 g/dL (12-16); IMMATURE GRANULOCYTES 0.2 % (0-5); LYMPHOCYTES 10.7 % (15-50); MCH 28.6 pg (26.0-34.0); MCHC 31.8 g/dL (31.0-37.0); MCV 89.9 fL (80.0-100.0); MONOCYTES 7.7 % (2-11); NEUTROPHILS 77.6 % (40-80); PLATELET COUNT 284 10x3/uL (130-400); RBC 3.98 10x6/uL (4.00-5.40); RDW 16.5 % (11.5-14.5); WBC 6.3 10x3/uL (4.8-10.8)
[2017-02-08 10:59] LABS: CALC OSMOLALITY 281 mosm/kg (275-300); CALCIUM 8.4 mg/dL (8.5-10.1); CARBON DIOXIDE 25.2 mmol/L (21.0-32.0); CHLORIDE - SERUM 106 mmol/L (98-107); GLUCOSE 110 mg/dL (74-106); POTASSIUM - SERUM 3.9 mmol/L (3.5-5.1); SODIUM 140 mmol/L (136-145); UREA NITROGEN 19 mg/dL (7-18); eGFR NON AFRICAN AMERICAN 87 mL/min (90-120)
[2017-02-08 11:04] LABS: CREATININE - SERUM 0.7 mg/dL (0.6-1.3)
[2017-02-08 12:03] VITALS: BP 149/67
--- NOTE | 2017-02-08 12:53 | NUR ---
MEDICATIONS REIEWED WITH JAIL SHEET. FROM [facility]
[2017-02-08 13:09] VITALS: Ht 160 cm; Wt 64.9 kg
[2017-02-08 16:10] VITALS: BP 130/54
[2017-02-08 20:00] VITALS: BP 125/74
[2017-02-09] VITALS: BP 149/59
--- NOTE | 2017-02-09 02:00 | NUR ---
PATIENT HOSITILE AND HITTING STAFF. HOUSE SUPERVISER NOTIFIED AND SECURITY SENT TO ROOM. PIV TO RIGHT FOREARM SECURED WITH KERLEX WITH HELP OF 4 STAFF MEMBERS. PATIENT THREATENING TO TREMAYNE STAFF AND SEND REPORT TO NEWSPAPER.
--- NOTE | 2017-02-09 02:16 | NUR ---
DR VILLAGOMEZ PAGED FOR THE SECOND TIME.
--- NOTE | 2017-02-09 02:29 | NUR ---
DR VILLAGOMEZ PAGED ONCE AGAIN. PATIENT IS MAKING ACUSATIONS OF STAFF MEMBERS PUTTING THEIR HANDS IN HER MOUTH.
--- NOTE | 2017-02-09 02:34 | NUR ---
PAGED DR. ESTEBAN (LIVESTOCK AUCTIONEER FOR DR. ALVAREZ).
--- NOTE | 2017-02-09 03:02 | NUR ---
PATIENT VIEWED ATTEMPTING TO GET OUT OF BED STATING SHE WANTED TO USE THE RESTROOM. BED SIDE COMMODE OFFERED SHE STATED SHE DIDN'T NEED TO GO AND SHE WASN'T DIRTY. SHE REFUSED TO BE CHECKED OR CHANGED.
--- NOTE | 2017-02-09 03:13 | NUR ---
MESSAGE LEFT ON HOME PHONE AFTER NUMEROUS PAGES NOT ANSWERED.
--- NOTE | 2017-02-09 03:29 | NUR ---
DR VILLAGOMEZ GAVE TELEPHONE ORDER FOR 1MG ATIVAN Q2H PRN. 1MG IV GIVEN.
--- NOTE | 2017-02-09 03:42 | NUR ---
ATTEMPTED TO ASSIST THE PATIENT ON AND OFF THE BEDPAN. THE PATIENT REFUSED. THE PATIENT IS IN BED WITH ONE ON ONE SITTER. NO VISIBLE SIGNS OF DISTRESS. BED IN LOWEST POSITION, CALL LIGHT WITHIN REACH, AND BED ALARM ON. ENCOURAGED THE PATIENT TO CALL IF SHE HAS NEEDS.
[2017-02-09 04:00] VITALS: BP 137/82
--- NOTE | 2017-02-09 05:17 | NUR ---
PATIENT DISROBING AND THROWING EVERYTHING OVER THE SIDE OF THE BED, REFUSES TO BE CLOTHED
[2017-02-09 08:52] LABS: BASOPHILS 0.1 % (0-2); EOSINOPHILS 6.7 % (0-7); HEMOGLOBIN 11.8 g/dL (12-16); LYMPHOCYTES 12.4 % (15-50); MCH 28.9 pg (26.0-34.0); MCHC 31.9 g/dL (31.0-37.0); MCV 90.5 fL (80.0-100.0); MONOCYTES 13.5 % (2-11); NEUTROPHILS 67.3 % (40-80); PLATELET COUNT 256 10x3/uL (130-400); RBC 4.09 10x6/uL (4.00-5.40); RDW 16.1 % (11.5-14.5); WBC 6.8 10x3/uL (4.8-10.8)
[2017-02-09 09:02] LABS: CALC OSMOLALITY 286 mosm/kg (275-300); CALCIUM 8.7 mg/dL (8.5-10.1); CARBON DIOXIDE 24.4 mmol/L (21.0-32.0); CHLORIDE - SERUM 110 mmol/L (98-107); CREATININE - SERUM 0.7 mg/dL (0.6-1.3); GLUCOSE 120 mg/dL (74-106); POTASSIUM - SERUM 3.7 mmol/L (3.5-5.1); SODIUM 143 mmol/L (136-145); UREA NITROGEN 15 mg/dL (7-18); eGFR NON AFRICAN AMERICAN 87 mL/min (90-120)
[2017-02-09 10:08] VITALS: BP 117/71
[2017-02-09 13:13] VITALS: BP 125/69
--- NOTE | 2017-02-09 14:21 | NUR ---
PATIENT'S FRIEND AT THE BEDSIDE. FRIEND STATED "CAN WE CALL THE DOCTOR AND GET HER CHANGED FROM NPO. SHE JUST ASKED ME IF I WOULD SNEAK HER IN A POPCYCLE." PAGED .
--- NOTE | 2017-02-09 14:50 | NUR ---
PATIENT HAD INCONTINENT BOWEL MOVEMENT AND INCONTINENT URINATION. CLEANED PATIENT UP WITH SLOT SERVICE SPECIALIST. CHANGED LINENS.
--- NOTE | 2017-02-09 14:55 | NUR ---
PAGED A SECOND TIME.
[2017-02-09 17:37] VITALS: BP 160/74
--- NOTE | 2017-02-09 18:00 | NUR ---
MIXING TANK OPERATOR CLEANED PATIENT UP AND CHANGED LINENS.
[2017-02-09 20:00] VITALS: BP 143/64
[2017-02-10 00:35] VITALS: BP 117/78
[2017-02-10 04:00] VITALS: BP 120/81
--- NOTE | 2017-02-10 04:37 | NUR ---
PATIENT RESTING WITH EYES CLOSED AND NO VISIBLE SIGNS OF DISTRESS. BED IN LOWEST POSITION AND CALL LIGHT WITHIN REACH.
[2017-02-10 08:42] VITALS: BP 146/69
[2017-02-10 11:36] VITALS: BP 120/78
[2017-02-10 15:41] VITALS: BP 159/74
[2017-02-10 20:00] VITALS: BP 162/73
[2017-02-11] VITALS: BP 149/70
[2017-02-11 04:00] VITALS: BP 149/66
[2017-02-11 07:10] VITALS: BP 148/70
--- NOTE | 2017-02-11 07:30 | NUR ---
SLEEPING, AROUSES TO VOICE, BED LOWEST POSITION, CALL LIGHT IN REACH, WILL CONTINUE TO MONITOR
--- NOTE | 2017-02-11 07:55 | NUR ---
PT LAYING IN BED WITH NO VISABLE SIGNS OF PAIN OR DISCOMFORT AT THIS TIME. BED IN LOW POSITION AND CALL LIGHT WITHIN REACH. WILL CONTINUE TO MONITOR.
[2017-02-11] MEDS ORDERED: NICODERM C1 PATCH .1 TRANSDERM (09:11)
[2017-02-11] MEDS ORDERED: REQUIP0.25 MG PO (09:12)
[2017-02-11] MEDS ORDERED: ATIVAN0.5 MG PO (09:12)
[2017-02-11] MEDS ORDERED: ULTRAM50 MG PO (09:13)
--- NOTE | 2017-02-11 11:28 | NUR ---
PATIENT IS DISCHARGING BACK TO [facility] TO A SKILLED BED BY FACILITY VAN
--- NOTE | 2017-02-11 11:44 | NUR ---
DISCHARGE INSTRUCTIONS AND PAPERS WENT OVER WITH BASHIR RIZVI LPN AT [facility], QUESTIONS ANSWERED, DISCHARGED PER WC WITH [facility] STAFF AND BELONGINGS
== END 2017-02-11 11:54 | DRG 394 ==
LOC: D.ER 10:29 → D.MS 14:56
PROVIDERS: Emergency Medicine; ADMIT Family Medicine
DX: K64.9 Unspecified hemorrhoids (principal); I69.354 Hemiplegia and hemiparesis following cerebral infarction affecting left non-dominant side; F01.51 Vascular dementia, unspecified severity, with behavioral disturbance; F17.203 Nicotine dependence unspecified, with withdrawal; Z66 Do not resuscitate; Z91.041 Radiographic dye allergy status; D50.0 Iron deficiency anemia secondary to blood loss (chronic); I10 Essential (primary) hypertension; R56.9 Unspecified convulsions; F20.9 Schizophrenia, unspecified; Z85.3 Personal history of malignant neoplasm of breast; Z90.12 Acquired absence of left breast and nipple; G30.9 Alzheimer's disease, unspecified; F02.80 Dementia in other diseases classified elsewhere, unspecified severity, without behavioral disturbance, psychotic disturbance, mood disturbance, and anxiety; G25.81 Restless legs syndrome

== ENCOUNTER 2017-02-13 17:54 | Emergency (ER) | payer MEDICARE ==
[2017-02-08 13:09] VITALS: BMI 25.3
[~2017-02-13 17:54] MED LIST changes: +ATIVAN0.5 MG PO; +NICODERM C1 PATCH .1 TRANSDERM; +ULTRAM50 MG PO
[2017-02-13 18:34] LABS: BASOPHILS 0.2 % (0-2); EOSINOPHILS 4.9 % (0-7); HEMATOCRIT 32.4 % (36.0-48.0); HEMOGLOBIN 10.2 g/dL (12-16); LYMPHOCYTES 11.7 % (15-50); MCH 28.4 pg (26.0-34.0); MCHC 31.5 g/dL (31.0-37.0); MCV 90.3 fL (80.0-100.0); MEAN PLATELET VOLUME 8.7 fL (7.4-10.4); NEUTROPHILS 72.2 % (40-80); RBC 3.59 10x6/uL (4.00-5.40); RDW 15.1 % (11.5-14.5); WBC 5.3 10x3/uL (4.8-10.8)
[2017-02-13 18:40] LABS: PLATELET COUNT 223 10x3/uL (130-400)
[2017-02-13 18:52] LABS: ALBUMIN 1.9 g/dL (3.4-5.0); ANION GAP 10.4 mmol/L (8-16); BILIRUBIN - TOTAL 0.4 mg/dL (0.2-1.3); CARBON DIOXIDE 27.3 mmol/L (21.0-32.0); CREATININE - SERUM 0.8 mg/dL (0.6-1.3); PROTEIN - SERUM 5.2 g/dL (6.4-8.2)
[2017-02-13 19:03] LABS: POTASSIUM - SERUM 2.7 mmol/L (3.5-5.1)
== END 2017-02-13 21:00 ==
LOC: D.ER 17:54
PROVIDERS: Emergency Medicine
DX: E87.6 Hypokalemia (principal); F03.90 Unspecified dementia, unspecified severity, without behavioral disturbance, psychotic disturbance, mood disturbance, and anxiety